=== PATIENT | male | born 2005 | race Caucasian/White ===

== ENCOUNTER 2024-03-03 20:12 | Emergency (ER) | payer BC ==
[~2024-03-03] VITALS: Ht 190.5 cm; Wt 95.5 kg
[2024-03-03 20:15] VITALS: TEMP 98.1
[2024-03-03] MEDS ORDERED: oxyCODONE/Acetaminophen 5-325 MG TAB PO ONE (20:45)
[2024-03-03] MEDS ORDERED: PERCOCET 325 MG1 TA2 PO (21:39)
[2024-03-03] MEDS ORDERED: CRUTCHES MC (21:40)
[2024-03-03] MEDS ORDERED: Home oxyCODONE/Acetaminophen 5/325 MG #4 TAB/PACK PO ONE (21:45)
[2024-03-03 22:08] VITALS: BP 142/80; PULSE 72
== END 2024-03-03 22:08 | disposition home or self-care (01) ==
LOC: COL.ER 20:12
DX: S82.831A Other fracture of upper and lower end of right fibula, initial encounter for closed fracture (principal); X50.9XXA Other and unspecified overexertion or strenuous movements or postures, initial encounter; Y93.6A Activity, physical games generally associated with school recess, summer camp and children
CPT/HCPCS: L4386